=== PATIENT | male | born 1995 | race Hispanic/Latino ===

== ENCOUNTER 2021-06-13 17:54 | Emergency (ER) | payer SELFPAY ==
[~2021-06-13] VITALS: Ht 170.2 cm; Wt 92.7 kg
[2021-06-13] MEDS ORDERED: ACETAMINOPHEN500 MG PO (18:57)
[2021-06-13] MEDS ORDERED: CLINDAMYCIN HC300 MG PO (18:57)
[2021-06-13] MEDS ORDERED: DOXYCYCLINE HY100 MG PO (18:57)
[2021-06-13] MEDS ORDERED: IBUPROFEN IB200 MG PO (18:57)
== END 2021-06-13 19:07 | disposition home or self-care (01) ==
LOC: FSED 18:00
DX: L05.91 Pilonidal cyst without abscess (principal); F17.210 Nicotine dependence, cigarettes, uncomplicated
CPT/HCPCS: 99282